=== PATIENT | male | born 1980 ===

== ENCOUNTER 2022-03-07 16:00 | Emergency (ER) | payer BC ==
[2022-03-07] MEDS ORDERED: Acetaminophen 500 MG Tab PO ONE (17:21)
[2022-03-07] MEDS ORDERED: Ibuprofen 400 MG Tab PO ONE (17:21)
[2022-03-07] MEDS ORDERED: Lidocaine 5% 700 MG Patch TRDERM ONE (17:22)
== END 2022-03-07 18:50 | disposition home or self-care (01) ==
LOC: MW.ED 16:00
DX: R20.2 Paresthesia of skin (principal); M54.2 Cervicalgia; M25.511 Pain in right shoulder
CPT/HCPCS: 99283; A9270